=== PATIENT | female | born 1975 | race African-American/Black ===

== ENCOUNTER 2018-12-10 05:24 | Inpatient (IN) ==
[2018-12-06 10:50] LABS: Apearance,Urine Slightly Hazy (Clear); Bacteria,Urine Moderate /HPF (Few); Bilirubin,Urine Negative (Negative); Blood, Urine Negative (Negative); Glucose,Urine (UA) Negative (Negative); Ketones,Urine Negative (Negative); Mucus,Urine Few /LPF (Occasional); Nitrite,Urine Negative (Negative); Protein,Urine Negative; RBC,Urine 1 /HPF (0-4); Squamous Epithelial Cell,Urine Occasional /HPF (0-10); Urine Color Yellow (Yellow); Urine Specific Gravity 1.017 (1.001-1.035); Urine Urobilinogen < 2.0 EU/DL (0.2-1.0); WBC,Urine 11 /HPF (0-6)
[2018-12-06 10:57] LABS: Basophils % 0.4 % (0.0-0.8); Eosinophils # 0.5 10*3/uL (0.0-0.87); Eosinophils % 6.7 % (0.00-10.9); Hematocrit 26.5 VOL% (35.7-47.0); Immature Granulocytes % 0.4 %; Immature Granulocytes Absolute 0.03 #; Lymphocytes # 1.7 10*3/uL (1.4-4.0); Lymphocytes % 24.1 % (21.3-54.2); Mean Corpuscular HGB Conc 24.9 GM/DL (32-36); Mean Corpuscular Hemoglobin 17 PG (27-34); Mean Corpuscular Volume 68.7 FL (87-102); Mean Platelet Volume 9.8 FL (9.6-12.0); Monocytes # 0.7 10*3/uL (0.11-0.8); Monocytes % 9.3 % (1.7-12.7); NRBC # 0.02 10*3/uL; Neutrophils # 4.3 10*3/uL (1.4-7.4); Neutrophils % 59.1 % (38.7-73.9); Platelet Count 799 T/CUMM (130-400); Red Blood Count 3.86 MC/CUMM (3.8-5.5); Red Cell Distribution Width 29.3 % (9.3-17.3); White Blood Count 7.2 T/CUMM (4-12)
[2018-12-06 11:00] LABS: Hemoglobin 6.6 GM/DL (12.0-16.0)
[2018-12-06 11:06] LABS: Hypochromasia 2+
[2018-12-06 11:07] LABS: Anisocytosis 1+; Ovalocytes Slight; Poikilocytosis 1+; Polychromasia Slight; Spherocytes Few
[2018-12-06 11:08] LABS: Platelet Estimate Increased; Target Cells Slight
[2018-12-06 11:09] LABS: Microcytosis 1+
[2018-12-06 12:35] LABS: HIV Antigen/Antibody Result Nonreactive (Nonreactive)
[2018-12-06 12:47] LABS: Alanine Aminotransferase 20 U/L (13-56); Albumin 3.6 G/DL (3.4-5.0); Alkaline Phosphatase 61 U/L (45-117); Aspartate Amino Transferase 29 U/L (0-37); Bilirubin,Total < 0.39 MG/DL (0.2-1.0); Blood Urea Nitrogen 8 MG/DL (7-18); Calcium 8.7 MG/DL (8.5-10.1); Cholesterol 147 MG/DL (50-200); Glucose 75 MG/DL (74-106); HDL Cholesterol 34 MG/DL (40-60); Osmolality,Calculated 269.8 MOS/KG (273-304); Potassium 3.9 MMOL/L (3.5-5.1); Risk Ratio 4.32; Sodium 137 MMOL/L (136-145); Total Protein 8.3 G/DL (6.4-8.3); Triglycerides 206 MG/DL (2-150); VLDL CHOLESTEROL 41.2 MG/DL
[2018-12-10] MEDS ORDERED: AMPICILLIN/SULBACTAM 3,000 MG VIAL ONE (05:54)
[2018-12-10] MEDS ORDERED: AMPICILLIN/SULBACTAM 3,000 MG in SODIUM CHLORIDE 0.9% 100 ML IV ONE (06:00)
[2018-12-10] MEDS ORDERED: ACETAMINOPHEN 500 MG TABLET PO ONE (06:13)
[2018-12-10] MEDS ORDERED: DIAZEPAM 5 MG TABLET PO ONE (06:13)
[2018-12-10] MEDS ORDERED: GABAPENTIN 400 MG CAPSULE PO ONE (06:13)
[2018-12-10] MEDS ORDERED: FAMOTIDINE 20 MG TABLET PO ONE (06:13)
[2018-12-10] MEDS ORDERED: GABAPENTIN 400 MG CAPSULE ONE (06:29)
[2018-12-10] MEDS ORDERED: DIAZEPAM 5 MG TABLET ONE (06:30)
[2018-12-10] MEDS ORDERED: ACETAMINOPHEN 500 MG TABLET ONE ×2 (06:30→06:35)
[2018-12-10] MEDS ORDERED: FAMOTIDINE 20 MG TABLET ONE (06:30)
[2018-12-10] MEDS ORDERED: LACTATED RINGERS 1,000 ML IV SCH ×2 (07:00→09:30)
[2018-12-10] MEDS ORDERED: ROPIVACAINE 0.5% 30 ML VIAL ONE (07:16)
[2018-12-10] MEDS ORDERED: SODIUM CHLORIDE 0.9% 1,000 ML IV PRN (07:58)
[2018-12-10] MEDS ORDERED: BUPIVACAINE 0.5% 50 ML VIAL ONE (08:29)
[2018-12-10] MEDS ORDERED: BISACODYL 10 MG SUPP RECTAL PRN (09:05)
[2018-12-10] MEDS ORDERED: ACETAMINOPHEN 325 MG TABLET PO PRN (09:05)
[2018-12-10] MEDS ORDERED: MAGNESIUM HYDROXIDE SUSP 30 ML UDCUP PO PRN (09:05)
[2018-12-10] MEDS ORDERED: IBUPROFEN 800 MG TABLET PO PRN (09:05)
[2018-12-10] MEDS ORDERED: BENZOCAINE/MENTHOL LOZENGE 18/BOX PO PRN (09:05)
[2018-12-10] MEDS ORDERED: ONDANSETRON 4 MG/2 ML VIAL IV PRN (09:05)
[2018-12-10] MEDS ORDERED: PROPOFOL 200 MG/20 ML VIAL IV ONE (10:26)
[2018-12-10] MEDS ORDERED: SEVOFLURANE 1 UNIT/15 MINUTE INH ONE (10:26)
[2018-12-10] MEDS ORDERED: ONDANSETRON 4 MG/2 ML VIAL ONE (10:27)
[2018-12-10] MEDS ORDERED: GLYCOPYRROLATE 0.4 MG/2 ML VIAL ONE (10:27)
[2018-12-10] MEDS ORDERED: KETOROLAC 30 MG/1 ML VIAL ONE (10:27)
[2018-12-10] MEDS ORDERED: PHENYLEPHRINE 1 MG/10 ML SYRINGE IV ONE (10:27)
[2018-12-10] MEDS ORDERED: DEXAMETHASONE 10 MG/1 ML VIAL ONE (10:27)
[2018-12-10] MEDS ORDERED: MIDAZOLAM 2 MG/2 ML VIAL ONE (10:27)
[2018-12-10] MEDS ORDERED: LACTATED RINGERS 1,000 ML IV ONE (10:28)
[2018-12-10] MEDS ORDERED: NEOSTIGMINE 10 MG/10 ML VIAL ONE (10:28)
[2018-12-10] MEDS ORDERED: INFLUENZA VIRUS VACCINE 0.5 ML SYRINGE IM ONE (11:07)
[2018-12-10 11:10] LABS: Apearance,Urine Slightly Hazy (Clear); Bacteria,Urine Many /HPF (Few); Bilirubin,Urine Negative (Negative); Blood, Urine Negative (Negative); Glucose,Urine (UA) Negative (Negative); Ketones,Urine 5 mg/dL (Negative); Mucus,Urine Many /LPF (Occasional); Nitrite,Urine Negative (Negative); Protein,Urine Negative; Squamous Epithelial Cell,Urine Occasional /HPF (0-10); Urine Color Yellow (Yellow); Urine Specific Gravity 1.018 (1.001-1.035); Urine Urobilinogen < 2.0 EU/DL (0.2-1.0); WBC,Urine 5 /HPF (0-6)
[2018-12-10] MEDS: ceFAZolin 1,000 MG in SYRINGE 1 EACH IV SCH ×2 (14:42→22:40)
[2018-12-10 16:48] LABS: Hematocrit 26.4 VOL% (35.7-47.0); Hemoglobin 7.6 GM/DL (12.0-16.0)
[2018-12-10] MEDS: HYDROmorphone 2 MG/1 ML VIAL IV PRN ×2 (17:32→22:44)
[2018-12-10] MEDS: FERROUS SULFATE 325 MG TABLET PO SCH (22:30)
[2018-12-11 06:53] LABS: Basophils % 0.4 % (0.0-0.8); Eosinophils % 0.1 % (0.00-10.9); Hematocrit 26.5 VOL% (35.7-47.0); Hemoglobin 7.5 GM/DL (12.0-16.0); Immature Granulocytes % 0.4 %; Immature Granulocytes Absolute 0.04 #; Lymphocytes # 1.9 10*3/uL (1.4-4.0); Lymphocytes % 19.2 % (21.3-54.2); Mean Corpuscular HGB Conc 28.3 GM/DL (32-36); Mean Corpuscular Hemoglobin 21 PG (27-34); Mean Corpuscular Volume 73.8 FL (87-102); Mean Platelet Volume 9.8 FL (9.6-12.0); Monocytes # 0.9 10*3/uL (0.11-0.8); Monocytes % 9.2 % (1.7-12.7); Neutrophils # 6.9 10*3/uL (1.4-7.4); Neutrophils % 70.7 % (38.7-73.9); Platelet Count 294 T/CUMM (130-400); Red Blood Count 3.59 MC/CUMM (3.8-5.5); Red Cell Distribution Width 28.4 % (9.3-17.3); White Blood Count 9.8 T/CUMM (4-12)
[2018-12-11] MEDS ORDERED: METOCLOPRAMIDE 10 MG/2 ML VIAL IV SCH (08:00)
[2018-12-11] MEDS ORDERED: SODIUM CHLORIDE 0.9% 1,000 ML IV PRN ×2 (08:11→08:12)
[2018-12-11] MEDS: FERROUS SULFATE 325 MG TABLET PO SCH ×3 (09:02→21:29)
[2018-12-11] MEDS ORDERED: ceFAZolin 1,000 MG in SYRINGE 1 EACH IV ONE (13:00)
[2018-12-11] MEDS: METOCLOPRAMIDE 10 MG TABLET PO SCH (15:35)
[2018-12-11] MEDS: DOCUSATE SODIUM 100 MG CAPSULE PO PRN (21:18)
[2018-12-12] MEDS: METOCLOPRAMIDE 10 MG TABLET PO SCH ×2 (05:21→07:07)
[2018-12-12 06:28] LABS: Basophils % 0.3 % (0.0-0.8); Eosinophils # 0.1 10*3/uL (0.0-0.87); Eosinophils % 0.8 % (0.00-10.9); Hematocrit 28.9 VOL% (35.7-47.0); Hemoglobin 8.5 GM/DL (12.0-16.0); Immature Granulocytes % 0.5 %; Immature Granulocytes Absolute 0.04 #; Lymphocytes # 1.2 10*3/uL (1.4-4.0); Lymphocytes % 16.3 % (21.3-54.2); Mean Corpuscular HGB Conc 29.4 GM/DL (32-36); Mean Corpuscular Hemoglobin 22 PG (27-34); Mean Corpuscular Volume 75.5 FL (87-102); Mean Platelet Volume 9.5 FL (9.6-12.0); Monocytes # 0.6 10*3/uL (0.11-0.8); Monocytes % 7.7 % (1.7-12.7); Neutrophils # 5.5 10*3/uL (1.4-7.4); Neutrophils % 74.4 % (38.7-73.9); Platelet Count 173 T/CUMM (130-400); Red Blood Count 3.83 MC/CUMM (3.8-5.5); Red Cell Distribution Width 26.4 % (9.3-17.3); White Blood Count 7.4 T/CUMM (4-12)
[2018-12-12 06:48] LABS: Hypochromasia 2+; Microcytosis 1+; Target Cells Slight
[2018-12-12 06:49] LABS: Polychromasia Slight
[2018-12-12 06:50] LABS: Platelet Estimate Adequate
[2018-12-12] MEDS ORDERED: MAGNESIUM CITRATE 300 ML BOTTLE PO ONE (07:13)
[2018-12-12] MEDS: FERROUS SULFATE 325 MG TABLET PO SCH (08:33)
[2018-12-12] MEDS: DOCUSATE SODIUM 100 MG CAPSULE PO PRN (08:33)
[2018-12-12 11:14] VITALS: BP 134/74
== END 2018-12-12 14:15 | disposition home or self-care (01) | DRG 743 ==
LOC: N.SDSINP 05:24 → N.OB 10:34
PROVIDERS: ADMIT Obstetrics & Gynecology; ATTEND Obstetrics & Gynecology